=== PATIENT | female | born 1945 | race Caucasian/White ===

== ENCOUNTER 2020-01-08 19:40 | Observation (INO) | payer MEDICARE, SELFPAY ==
[2020-01-08] VITALS (7 sets, daily range): BP systolic 133–165; BP diastolic 78–102; PULSE 69–90; RESP 14–18; TEMP 36.3–36.5; O2SAT 97–100; BMI 34.4
--- NOTE | 2020-01-08 19:56 | CTR_ITS ---
PROCEDURE INFORMATION: Exam: CT Head Without Contrast Exam date and time: 01/08/2020 8:22 PM Age: 74 years old Clinical indication: Visual disturbance and weakness, extremity; Right; Patient HX: Double vision L eye pain and R sided weakness x 1 week TECHNIQUE: Imaging protocol: Computed tomography of the head without contrast. Total DLP: 802.28 mGy-cm Radiation optimization: All CT scans at this facility use at least one of these dose optimization techniques: automated exposure control; mA and/or kV adjustment per patient size (includes targeted exams where dose is matched to clinical indication); or iterative reconstruction. COMPARISON: CT head wo con* [id number] 05/16/2018 6:37 AM FINDINGS: Brain: Moderate white matter disease and volume loss are identified. There is no acute infarct or edema. No hemorrhage. Ventricles: Normal. No ventriculomegaly. Bones/joints: Unremarkable. No acute fracture. Sinuses: Visualized sinuses are unremarkable. No fluid levels. Mastoid air cells: Visualized mastoid air cells are well aerated. Soft tissues: Unremarkable. CT/CT head wo con* [id number] IMPRESSION: There are no acute concerning abnormalities. Radiation Dose CTDIVOL = (mGy): DLP = 802.28 (mGy-cm)
--- NOTE | 2020-01-08 19:56 | XRR_ITS ---
PROCEDURE INFORMATION: Exam: XR Chest, 1 View Exam date and time: 01/08/2020 8:28 PM Age: 74 years old Clinical indication: Other: Weakness TECHNIQUE: Imaging protocol: XR of the chest Views: 1 view. COMPARISON: CR Chest 2 views* [id number] 06/02/2018 9:04 AM FINDINGS: Lungs: Unremarkable. No consolidation. Pleural space: Unremarkable. No pleural effusion. No pneumothorax. Heart/Mediastinum: Cardiomegaly is identified. Bones/joints: Unremarkable. XR/XR chest 1V portable [id number] IMPRESSION: No acute findings.
--- NOTE | 2020-01-08 19:57 | ECG_ITS ---
Measurements Intervals [place] Rate: 70 P: 243 MI: 219 QRS: -1 QRSD: 87 T: 153 QT: 423 QTc: 458 SINUS RHYTHM WITH MARKED SINUS ARRHYTHMIA WITH FIRST DEGREE AV BLOCK POSSIBLE ANTERIOR MYOCARDIAL INFARCTION [30 ms Q WAVE IN V3/V4, OR R < 0.2 mV IN V4], OF INDETERMINATE AGE MODERATE T-WAVE ABNORMALITY, CONSIDER LATERAL ISCHEMIA [-0.1+ mV T WAVE IN I/ I/aVL/V5/V6] Compared to ECG 05/16/2018 04:48:00 First degree AV block now present Myocardial infarct finding now present Atrial fibrillation no longer present T-wave abnormality still present Possible ischemia still present Electronically Signed On 01-09-2020 21:10:05 CDT by Miah Kelly M.D. [email or web address]
--- NOTE | 2020-01-08 19:59 | ED_ITS ---
HPI - Weakness General: Chief complaint: Neuro Symptoms/Deficit Stated complaint: eye pain Time Seen by Provider: 01/08/20 19:48 Source: patient Mode of arrival: ambulatory Limitations: no limitations History of Present Illness: HPI Narrative: 74-year-old female who states she is not been able to move her right side for the last 6 days. She states that she did come to ER because she did not think it was open due to the coronavirus. Patient states she started to have some movement of the right arm but still unable to move her right leg. Her daughter is been taking care of her. She states that she is also had some right-sided facial droop. Patient here has no aphasia and is able to speak without any difficulties. Complaint: focal weakness Onset (ago): hour(s) Associated symptoms: Denies chest pain, chills, dysuria, easy bruising, fever(s), headache(s), nausea or vomiting Review of Systems Const: Denies: fever, chills, body aches or change in appetite Eyes: Denies: blurry vision or eye discomfort ENMT: Denies: throat pain or dental pain Card: Denies: chest pain Resp: Denies: shortness of breath GI: Denies: abdominal pain, nausea, vomiting or diarrhea : Denies: painful urination Musc: Denies: neck pain or back pain Skin/Breast: Denies: rash Neuro: Reports: weakness in extremities; Denies: headache Psych: Denies: depression Sarabjit/Lymph: Denies: easy bruising All/Imm: Denies: hives PFS ED PFSH: Medical History (Updated 01/08/20 @ 21:30 by Mi Elder MD) Anemia Atrial fibrillation B12 deficiency CHF (congestive heart failure) COPD (chronic obstructive pulmonary disease) Coronary artery disease Percutaneous intervention circumflex artery Hypertension Hypothyroidism Insulin dependent diabetes mellitus Iron deficiency Microcytic anemia Surgical History (Updated 01/08/20 @ 21:17 by Miah Maravilla MD) H/O Spinal surgery H/O total thyroidectomy Family History (Updated 01/08/20 @ 21:17 by Miah Maravilla MD) Other CAD (coronary artery disease) Diabetes Lung disease Social History (Updated 01/08/20 @ 21:18 by Miah Maravilla MD) Smoking and tobacco status: former smoker Quit status (tobacco): has quit using tobacco Former quit date comment: Quit 2002 Alcohol intake: never Substance/Drug Use: never Household members: family Marital status: Single Physical Exam Const: COMMON NORMALS: no apparent distress, oriented x3 and healthy appearing HENMT: COMMON NORMALS: normocephalic and head/scalp atraumatic HEAD & SCALP: normocephalic and atraumatic Eye: COMMON NORMALS: PERRL and EOMs intact bilaterally PUPIL: Yes PERRL Neck/C-Spine: COMMON NORMALS: full ROM and supple Chest: COMMONS NORMALS: inspection of chest normal and palpation of chest normal Resp: COMMON NORMALS: normal respiratory effort, no retractions, no use of accessory muscles and clear to auscultation bilaterally AUSCULTATION: clear to auscultation bilaterally Cardio: COMMON NORMALS: regular rate, regular rhythm and no murmurs RATE: regular rate RHYTHM: regular rhythm GI: COMMON NORMALS: normal to inspection, nondistended, normoactive bowel sounds, soft to palpation, non-tender and no masses PALPATION: Yes soft Extremity: COMMON NORMALS: normal to inspection and full ROM Neuro: COMMON NORMALS: oriented x3 OTHER: unable to move right lower leg, weakness in right arm. Psych: COMMON NORMALS: mental status grossly normal, thought process normal and cooperative THOUGHT PROCESS: normal thought process Skin: COMMON NORMALS: no rashes or lesions noted and no wounds GENERAL SKIN EXAM: no rashes or lesions noted Course 2 Vital Signs: Vital signs: Vital Signs Temperature 97.4 F L 01/08/20 19:50 Pulse Rate 69 01/08/20 21:00 Respiratory Rate 14 01/08/20 20:59 Blood Pressure 133/82 01/08/20 20:59 Pulse Oximetry 97 01/08/20 20:59 MDM - Weakness Medical Records: Medical records narrative: Patient presents here with right- sided weakness. Patient is unable to move her leg and has weakness in the right arm as well. Patient CT here showed no acute stroke. Patient symptoms have been going on for days and she is not a TPA or embolic candidate. Spoke to hospitalist and will admit here. Patient had eye pain earlier in the day but has no eye pain currently and eye exam is benign. Lab Data: Labs: Lab Results 01/08/20 01/08/20 01/08/20 Range/Units 20:14 20:14 20:14 WBC 9.4 (4.0-10.0) 10^3/ uL RBC 4.95 (4.1-5.3) 10^6/u L Hgb 13.4 (11.5-15.3) g/dL Hct 42.8 (37.0-47.0) % MCV 86.5 (81-99) fL MCH 27.1 L (28.0-34.0) pg MCHC 31.3 (30.0-36.0) g/dL RDW 14.9 (12.1-15.1) % Plt Count 252 (130-400) 10^3/c mm MPV 9.1 (7.4-10.4) fL Neut % (Auto) 62.7 % Lymph % (Auto) 27.3 % [place] % (Auto) 6.5 % Eos % (Auto) 2.4 % Baso % (Auto) 0.9 % Neut # (Auto) 5.9 (1.8-7.7) 10^3/u L Lymph # (Auto) 2.6 (0.8-4.8) 10^3/u L [place] # (Auto) 0.6 (0.2-0.9) 10^3/u L Eos # (Auto) 0.2 (0.0-0.8) 10^3/u L Baso # (Auto) 0.1 (0.0-0.1) 10^3/u L Nucleated RBC % (a uto) 0 % Nucleated RBCs # 0.0 /100WBC PT 16.30 H (10.5-13.3) SECO NDS INR 1.27 H (0.8-1.2) Sodium 134 L (136-145) mmol/L Potassium 4.3 (3.5-5.1) mmol/L Chloride 98 (98-107) mmol/L Carbon Dioxide 25 (22-29) mmol/L Anion Gap 15.3 (5-19) BUN 12 (8-23) mg/dL Creatinine 1.0 H (0.5-0.9) mg/dL Glucose 258 H (65-115) mg/dL Calculated Osmolal ity 283 L (285-295) mOsm/k g Calcium 9.4 (8.5-10.5) mg/dL Total Bilirubin 0.3 (0.15-1.2) mg/dL AST 12 (0-32) U/L ALT 11 (0-33) U/L Alkaline Phosphata se 66 (35-105) IU/L Total Protein 8.1 (6.6-8.7) g/dL Albumin 4.2 (3.5-5.2) g/dL Globulin 3.9 (1.3-4.6) g/dL Imaging Data^: CXR: Attestation: I personally reviewed and interpreted this imaging study as follows: My impression: no acute abnormalities CT Head: Radiologist's impression: [facility] [address] [address] [place] [address] CT Scan Report Signed Patient: Kiesha Eason Unit #: [id number] : 1945 Age/Sex: 74 / F ADM Date: 01/08/20 Loc: ER Room/Bed: Attending Dr: Ordering Provider/Ordering MD: Mi Elder MD Date of Service: 01/08/20 Procedure(s): CT head wo con* [id number] Accession Number(s): [id number] Report Number: [id number] PROCEDURE INFORMATION: Exam: CT Head Without Contrast Exam date and time: 01/08/2020 8:22 PM Age: 74 years old Clinical indication: Visual disturbance and weakness, extremity; Right; Patient HX: Double vision L eye pain and R sided weakness x 1 week TECHNIQUE: Imaging protocol: Computed tomography of the head without contrast. Total DLP: 802.28 mGy-cm Radiation optimization: All CT scans at this facility use at least one of these dose optimization techniques: automated exposure control; mA and/or kV adjustment per patient size (includes targeted exams where dose is matched to clinical indication); or iterative reconstruction. COMPARISON: CT head wo con* [id number] 05/16/2018 6:37 AM FINDINGS: Brain: Moderate white matter disease and volume loss are identified. There is no acute infarct or edema. No hemorrhage. Ventricles: Normal. No ventriculomegaly. Bones/joints: Unremarkable. No acute fracture. Sinuses: Visualized sinuses are unremarkable. No fluid levels. Mastoid air cells: Visualized mastoid air cells are well aerated. Soft tissues: Unremarkable. CT/CT head wo con* [id number] IMPRESSION: There are no acute concerning abnormalities. EKG Data^: EKG 1: Attestation: I personally reviewed and interpreted this EKG as follows: EKG interpretation date: 01/08/20 EKG interpretation time: 20:19 Interpretation: nsr hr [address] or t wave abnormalities qrs 87 qtd 444 Discharge Plan Discharge Patient Disposition: Admitted As Inpatient Clinical Impression: Right hemiparesis Condition: Stable Coding Level of Care Code ED Reading Interventionist for Chg Fwd Exam Comprehensive
--- NOTE | 2020-01-08 20:07 | PC.NURSE ---
patient states that about a week ago she started having sudden loss of movement on the right side of her body. patient states that around the same time she started having left sided eye pain. patient states that her left leg and arm feel like they just hang there .
[2020-01-08 20:32] LABS: Basophils # 0.1 10^3/uL (0.0-0.1); Basophils % 0.9 %; Eosinophils # 0.2 10^3/uL (0.0-0.8); Eosinophils % 2.4 %; Hematocrit 42.8 % (37.0-47.0); Hemoglobin 13.4 g/dL (11.5-15.3); Lymphocytes # 2.6 10^3/uL (0.8-4.8); Lymphocytes % 27.3 %; Mean Corpuscular HGB Conc 31.3 g/dL (30.0-36.0); Mean Corpuscular Hemoglobin 27.1 pg (28.0-34.0); Mean Corpuscular Volume 86.5 fL (81-99); Mean Platelet Volume 9.1 fL (7.4-10.4); Monocytes # 0.6 10^3/uL (0.2-0.9); Monocytes % 6.5 %; Neutrophils # 5.9 10^3/uL (1.8-7.7); Neutrophils % 62.7 %; Nucleated Red Blood Cells % 0 %; Platelet Count 252 10^3/cmm (130-400); Red Blood Count 4.95 10^6/uL (4.1-5.3); Red Cell Distribution Width 14.9 % (12.1-15.1); White Blood Count 9.4 10^3/uL (4.0-10.0)
[2020-01-08 20:53] LABS: INR 1.27 (0.8-1.2)
[2020-01-08 21:00] LABS: Alanine Aminotransferase 11 U/L (0-33); Albumin Level 4.2 g/dL (3.5-5.2); Alkaline Phosphatase 66 IU/L (35-105); Anion Gap 15.3 (5-19); Aspartate Amino Transferase 12 U/L (0-32); Blood Urea Nitrogen 12 mg/dL (8-23); Calcium 9.4 mg/dL (8.5-10.5); Carbon Dioxide 25 mmol/L (22-29); Chloride 98 mmol/L (98-107); Creatinine Clr Calc Pharmacy 59.8992; Globulin 3.9 g/dL (1.3-4.6); Glucose 258 mg/dL (65-115); Osmolality Calculated 283 mOsm/kg (285-295); Potassium 4.3 mmol/L (3.5-5.1); Sodium 134 mmol/L (136-145); Total Bilirubin 0.3 mg/dL (0.15-1.2); Total Protein 8.1 g/dL (6.6-8.7)
--- NOTE | 2020-01-08 21:12 | CTR_ITS ---
PROCEDURE INFORMATION: Exam: CT Angiography Head With Contrast Exam date and time: 01/08/2020 9:27 PM Age: 74 years old Clinical indication: Patient HX: C/O R sided weakness x 1 week; Additional info: CVA TECHNIQUE: Imaging protocol: Computed tomography angiography of the head with intravenous contrast. 3D rendering: MIP and/or 3D reconstructed images were created by the technologist. Total DLP: 2464.04 mGy-cm Radiation optimization: All CT scans at this facility use at least one of these dose optimization techniques: automated exposure control; mA and/or kV adjustment per patient size (includes targeted exams where dose is matched to clinical indication); or iterative reconstruction. Contrast material: VISI 320; Contrast volume: 95 ml; Contrast route: 20G; COMPARISON: CT head wo con* [id number] 01/08/2020 8:29 PM FINDINGS: Right internal carotid artery: There are calcifications present within the cavernous and supraclinoid segments with no significant stenosis or occlusion. No aneurysm. Right anterior cerebral artery: No occlusion or significant stenosis. No aneurysm. Right middle cerebral artery: No occlusion or significant stenosis. No aneurysm. Right posterior cerebral artery: No occlusion or significant stenosis. No aneurysm. Right vertebral artery: No occlusion or significant stenosis. No aneurysm. Left internal carotid artery: Calcific plaques are present within the cavernous and supraclinoid segments with no significant stenosis or occlusion. No aneurysm. Left anterior cerebral artery: No occlusion or significant stenosis. No aneurysm. Left middle cerebral artery: No occlusion or significant stenosis. No aneurysm. Left posterior cerebral artery: No occlusion or significant stenosis. No aneurysm. Left vertebral artery: No occlusion or significant stenosis. No aneurysm. Basilar artery: No occlusion or significant stenosis. No aneurysm. IMPRESSION: No large vessel stenosis or occlusion. PROCEDURE INFORMATION: Exam: CT Angiography Neck With Contrast Exam date and time: 01/08/2020 9:27 PM Age: 74 years old Clinical indication: Patient HX: C/O R sided weakness x 1 week; Additional info: CVA TECHNIQUE: Imaging protocol: Computed tomography angiography of the neck with intravenous contrast. 3D rendering: MIP and/or 3D reconstructed images were created by the technologist. Total DLP: 2464.04 mGy-cm Radiation optimization: All CT scans at this facility use at least one of these dose optimization techniques: automated exposure control; mA and/or kV adjustment per patient size (includes targeted exams where dose is matched to clinical indication); or iterative reconstruction. Contrast material: VISI 320; Contrast volume: 95 ml; Contrast route: 20G; COMPARISON: CT head wo con* [id number] 01/08/2020 8:29 PM FINDINGS: VASCULATURE: Right common carotid artery: Calcific plaques are present within the carotid bulb. This causes approximately 40% luminal diameter narrowing. No dissection or occlusion. Right internal carotid artery: No stenosis of the extracranial segment. No dissection or occlusion. Right external carotid artery: No occlusion or stenosis of the origin. Right vertebral artery: No stenosis. No dissection or occlusion. Left common carotid artery: Calcific plaques are present within the carotid bulb. There is approximately 60% luminal diameter narrowing seen within the carotid bulb. Left internal carotid artery: No stenosis of the extracranial segment. No dissection or occlusion. Left external carotid artery: No occlusion or stenosis of the origin. Left vertebral artery: No stenosis. No dissection or occlusion. Other vasculature: . No dissection or occlusion. NECK: Bones/joints: No acute fracture. Soft tissues: Normal. No significant soft tissue swelling. CT/CT angio headneck* [id number] IMPRESSION: 1. There is mild, approximately 40% luminal diameter narrowing secondary to calcific plaque formation within the right carotid bulb. 2. There is moderate, approximately 60% luminal diameter narrowing secondary to calcific plaque formation within the left carotid bulb. REFERENCES: NASCET CRITERIA. The degree of internal carotid artery stenosis is based on NASCET criteria. Normal is no stenosis. Mild is less than 50% stenosis. Moderate is 50-69% stenosis. Severe is 70% to 99% stenosis. Total occlusion is no detectable patent lumen. Radiation Dose CTDIVOL = (mGy): DLP = 2464.04~2464.04 (mGy-cm)
--- NOTE | 2020-01-08 21:14 | PM.HP ---
Providers/Chief Complaint Chief Complaint: eye pain History of Present Illness Kiesha Eason is a 74 year old female who carries diagnosis of atrial fibrillation, chronic anticoagulation on Xarelto, coronary artery disease status post PCI, type 2 diabetes, insulin-dependent, non-oxygen dependent COPD, came in after experiencing right leg weakness. Patient is stating that her symptoms started about 1 week ago around Friday when she started noticing right leg weakness when she woke up, she also noticed weakness in her right arm. She did not come to ER for further evaluation thinking hospitals are closed because of pandemic. She lives with her granddaughter. She did not experience any falls, aspiration or choking on food, she denies urinary or bowel incontinence, fever, nausea, vomiting, palpitations, chest pain, shortness of breath. Patient is stating that she is very compliant with her medications except Lasix which she has not been taking since last 1 week. She has been noticing swelling in her lower extremities bilaterally. Today she went to urgent care because of gradually worsening of weakness of her right side of the body, at the urgent care facial droop was noticed hence she was transferred to ER for further evaluation. Diagnostics in ER revealed normal hemodynamics, normal blood work, CT head negative for intracranial hemorrhage, I requested CTA head and neck Patient is stating that she only stopped Xarelto in September and October for only 2 days before her cataract surgery otherwise she has been compliant with it. She is not a candidate for TPA, EKG shows A. fib without RVR heart rate 70s, systolic blood pressure 140s, Review of Systems Const: Reports: body aches and fatigue; Denies: fever or chills Eyes: Reports: blurry vision, blind spots, photophobia, eye discomfort and dry eyes; Denies: eye redness or yellow eyes ENMT: Denies: throat pain or uvular edema Card: Reports: irregular heart rhythm, edema and swelling of feet/ankles; Denies: chest pain, palpitations, syncope or pre-syncope Resp: Denies: shortness of breath GI: Denies: abdominal pain, nausea or vomiting : Denies: flank pain, difficulty urinating or urinary frequency Musc: Reports: limited range of motion and muscle weakness Skin/Breast: Denies: rash Neuro: Reports: numbness in extremities, weakness in extremities and difficulty walking; Denies: headache, frequent falls, confusion, behavioral changes, slurred speech or seizure-like activity Psych: Denies: anxiety Endo: Denies: excessive urination Sarabjit/Lymph: Denies: easy bruising All/Imm: Denies: hives Medications/Allergies Allergies Allergy/AdvReac Type Severity Reaction Status Date / Time gabapentin Allergy Unknown Verified 01/08/20 18:47 levothyroxine Allergy Unknown Verified 01/08/20 18:47 lisinopril Allergy Unknown Verified 01/08/20 18:47 naproxen Allergy Unknown Verified 01/08/20 18:47 pentazocine Allergy Unknown Verified 01/08/20 18:47 pioglitazone Allergy Unknown Verified 01/08/20 18:47 raloxifene Allergy Unknown Verified 01/08/20 18:47 simvastatin Allergy Unknown Verified 01/08/20 18:47 verapamil Allergy Unknown Verified 01/08/20 18:47 PFSH Acute PFSH: Medical History Anemia Atrial fibrillation B12 deficiency CHF (congestive heart failure) COPD (chronic obstructive pulmonary disease) Coronary artery disease Percutaneous intervention circumflex artery Hypertension Hypothyroidism Insulin dependent diabetes mellitus Iron deficiency Microcytic anemia Surgical History H/O Spinal surgery H/O total thyroidectomy Family History Other CAD (coronary artery disease) Diabetes Lung disease Social History Smoking and tobacco status: former smoker Quit status (tobacco): has quit using tobacco Former quit date comment: Quit 2002 Alcohol intake: never Substance/Drug Use: never Household members: family Marital status: Single Vitals/I&O/Wt Last Vital Signs Temp 97.4 F L 01/08/20 19:50 Pulse 69 01/08/20 21:00 Resp 14 01/08/20 20:59 BP 133/82 01/08/20 20:59 Pulse Ox 97 01/08/20 20:59 Weight last 48 hrs Weight 99.79 kg Physical Exam Narrative: EXAM NARRATIVE: Very pleasant elderly female sitting comfortably in her bed Saturating well on room air Systolic blood pressure 140s, heart rate 76, A. fib without RVR Right arm weakness on flexion, extension, weak handgrip, NIH score 7, reflexes are equivocal Did not detect visual field loss EOMI Patient is awake, alert, able to protect her airways Bilateral pupils sluggish response to light No deviation of tongue Deviation of angle of mouth towards the left with right-sided facial droop Palmer's palsy right-sided S1, S2 are variable, bilateral lower extremity edema 1+ Lungs are clear to auscultation Abdomen soft, nontender, distended, obese obesity, bowel sound present Appropriate mood and affect Data : 01/08/20 20:14 01/08/20 20:14 A&P Assessment and plan (1) Right hemiparesis: Status: Acute (2) Ischemic stroke: Status: Acute (3) Chronic anticoagulation: Status: Acute Additional A&P Information Subacute ischemic stroke while on anticoagulation Right hemiparesis with ipsilateral Palmer's palsy I would hold anticoagulation along Plavix, would follow-up with CTA head and neck to know more about the infarcted area, considering use of Plavix and Xarelto should be considered high risk for intracranial hemorrhage after ischemic stroke NIH 7, not a candidate of TPA because of use of Xarelto A. fib without RVR, she has been compliant with her anticoagulation, Hold anticoagulation for at least 2 to 3 weeks Discontinue Plavix, Allow permissive hypertension, strict glucose control, Physical therapy in the morning, she passed bedside evaluation, I will let her have consistent carbohydrate diet tonight Patient does not want to go to any prison, she would rather rely on her daughter and granddaughter and home health services This will be considered failure of Xarelto for prevention of stroke, kindly reevaluate for alternative options A. fib without RVR I would continue AV shreya blocking agent but hold anticoagulation for at least 2 to 3 weeks because of recent embolic event No palpitations or chest pain, discontinue Plavix, she was taking Plavix because of previous history of PCI in 2017 to her circumflex artery Type 2 diabetes, insulin-dependent, Sliding scale and long-acting insulin Ischemic cardiomyopathy acute exacerbation of CHF exacerbation: EF 45% I would continue her home dose of Lasix which she has not been taking for last 1 week, Hypothyroidism status post thyroidectomy Continue levothyroxine Previous history of microcytic anemia with B12 deficiency: We will check B12 level and continue B12 supplementation at this time which could also be a cause of hypercoagulability COPD: Without active exacerbation Non-oxygen dependent Patient is full code DVT prophylaxis: Patient took her Xarelto today, she is covered for 24 hours, for tomorrow I would start Lovenox DVT prophylaxis dose Attestations Medical Necessity Statement*: Anticipating discharge less than 48 hours after evaluation of by physical therapy in the morning, she might benefit from home health services, currently awaiting CTA head and neck Time Spent in Patient Care: 50 Coding Level of Care Code Acute [employer]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
--- NOTE | 2020-01-08 21:44 | PC.NURSE ---
hospitalist in room with patient
[2020-01-08] MEDS: iodixanol 320 mg/mL 100mL Btl IV (21:55)
--- NOTE | 2020-01-08 21:55 | PC.NURSE ---
PATIENT TO CT
[2020-01-08 23:30] LABS: Vitamin B12 614 pg/mL (232-1245)
[2020-01-09 01:01] VITALS: BP 135/83; PULSE 73; RESP 18; TEMP 36.4; O2SAT 96
[2020-01-09] MEDS: ALPRAZolam 0.25 mg Tablet 0.125 MG PO (02:41)
[2020-01-09 03:53] VITALS: BP 109/64; PULSE 86; RESP 18; TEMP 36.8; O2SAT 98
[2020-01-09 04:53] LABS: Specific Gravity, Urine 1.005 (1.005-1.030); Urine Appearance Clear (CLEAR); Urine Color Yellow (Yellow); pH Urine 5 (5-7)
[2020-01-09 04:54] LABS: Add Urine Microscopic? YES; Bacteria Urine 1+; Bilirubin Urine Neg (NEGATIVE); Blood Urine Neg (Negative); Glucose Urine UA 2+ (Normal); Ketones Urine Negative (Negative); Leukocyte Esterase Urine 1+ (Negative); Nitrate Urine Negative (Negative); Protein Urine Trace (Negative); RBC Urine 0-4 /hpf (0-2); Squamous Epithelial Cell Urine 0-4 (0-5); Urobilinogen Urine Norm (Negative)
[2020-01-09 06:34] LABS: Glucose Point of Care 237 mg/dL (70-110)
[2020-01-09 06:35] LABS: Anion Gap 16.5 (5-19); Blood Urea Nitrogen 12 mg/dL (8-23); Calcium 9.8 mg/dL (8.5-10.5); Carbon Dioxide 27 mmol/L (22-29); Chloride 97 mmol/L (98-107); Glucose 246 mg/dL (65-115); Osmolality Calculated 286 mOsm/kg (285-295); Potassium 4.5 mmol/L (3.5-5.1); Sodium 136 mmol/L (136-145)
[2020-01-09 07:00] VITALS: BP 128/88; PULSE 98; RESP 18; TEMP 36.8; O2SAT 96
[2020-01-09] MEDS: levothyroxine 50 mcg Tablet PO (08:09)
[2020-01-09] MEDS: cyanocobalamin 1,000 mcg Tablet 1000 MCG PO (08:10)
[2020-01-09] MEDS: clopidogrel 75 mg Tablet PO (08:11)
[2020-01-09] MEDS: sennosides 8.6 mg Tablet PO (08:11)
[2020-01-09] MEDS: levothyroxine 100 mcg Tablet PO (08:11)
[2020-01-09] MEDS: pantoprazole DR 40 mg Tablet PO (08:12)
[2020-01-09] MEDS: metoprolol tartrate 50 mg Tablet 100 MG PO (08:12)
[2020-01-09] MEDS: artificial tears Op Oint 3.5 gm 1 APPLIC EYE-BOTH (08:13)
[2020-01-09] MEDS: insulin glargine 100 units/1 mL 30 UNIT SUBCUT (08:14)
[2020-01-09 11:00] VITALS: BP 93/67; PULSE 97; RESP 18; TEMP 36.6; O2SAT 96
[2020-01-09 11:26] LABS: Glucose Point of Care 266 mg/dL (70-110)
[2020-01-09 14:24] VITALS: BP 93/67; PULSE 97; RESP 18; TEMP 36.6; O2SAT 96
--- NOTE | 2020-01-09 22:59 | P.DS_ITS ---
Discharge Providers Date of Admission: 01/08/20 21:10 Date of Discharge: January 09, 2020 Attending Provider at Admission: Miah Maravilla MD Attending Provider at Discharge: Janay Conklin MD Diagnoses at Discharge Discharge Diagnosis (1) Right hemiparesis: Status: Acute (2) Ischemic stroke: Status: Acute (3) Chronic anticoagulation: Status: Acute Reason for Visit Reason for Visit: Reason For Visit: eye pain Hospital Course Discharge Summary: Kiesha Eason is a 74 year old female who carries diagnosis of atrial fibrillation, chronic anticoagulation on Xarelto, coronary artery disease status post PCI, type 2 diabetes, insulin-dependent, non-oxygen dependent COPD, came in after experiencing right sided weakness that started 6 days ago. NIHSS was 7. CT head was negative. CTA head and neck showed 40-60% ICA stenosis B/L. she was not a candidate for tPA. PT eval was done and recommended SNF rehab, however patient declined. Patient also declined outpatient and home PT. Her daughter requested a home exercise program and this was provided. CAse was discussed with [facility] neurology, it was recommended to switch a/c from xarelto to eliquis due to possibly lower risk of hemorrhagic transformation for the same. Anticoagulation can be resumed at 7 days (2 days from now). Recommeded strict blood pressure control as well. Patient was discharged with these recommendations. Her R side weakness was subjectively improving upon discharge. She will have family helping her at home. Physical Exam Narrative: EXAM NARRATIVE: GEN: Awake, alert and oriented, no acute distress CVS: S1S2 N RS: CTA B/L Abd: Soft, nt/nd , bs+ ACID CHANGER: R sided weakness Discharge Data Data Completed and Pending: Completed Studies During Hospitalization Category Date Time Status CT angio headneck * [id number]/[id number] Urge nt Cat Scan 01/08/20 21:[address] head wo con* 7 0450 Urgent Cat Scan 01/08/20 19:56 Completed XR chest 1V amena ble [id number] Urgent Exams 01/08/20 19:56 Completed Labs from last 24 hours 01/09/20 01/09/20 01/09/20 11:23 06:19 06:01 Sodium 136 Potassium 4.5 Chloride 97 L Carbon Dioxide 27 Anion Gap 16.5 BUN 12 Creatinine 0.9 Glucose 246 H POC Glucose 266 237 Calculated Osmolal ity 286 Calcium 9.8 Vitamin B12 Urine Color Urine Appearance Urine pH Ur Specific Gravit y Urine Protein Urine Glucose (UA) Urine Ketones Urine Blood Urine Nitrate Urine Bilirubin Urine Urobilinogen Ur Leukocyte Teresa ase Urine RBC Urine WBC Ur Squamous Epith Cells Urine Bacteria 01/09/20 01/08/20 03:45 20:14 Sodium Potassium Chloride Carbon Dioxide Anion Gap BUN Creatinine Glucose POC Glucose Calculated Osmolal ity Calcium Vitamin B12 614 Urine Color Yellow Urine Appearance Clear Urine pH 5 Ur Specific Gravit y 1.005 Urine Protein Trace Urine Glucose (UA) 2+ Urine Ketones Negative Urine Blood Neg Urine Nitrate Negative Urine Bilirubin Neg Urine Urobilinogen Norm Ur Leukocyte Teresa ase 1+ H Urine RBC 0-4 H Urine WBC 10-15 H Ur Squamous Epith Cells 0-4 H Urine Bacteria 1+ H Vitals: Last Vital Signs Temp 98 F 01/09/20 14:24 Pulse 97 01/09/20 14:24 Resp 18 01/09/20 14:24 BP 93/67 01/09/20 14:24 Pulse Ox 96 01/09/20 14:24 Discharge Plan Discharge Patient Disposition: Home, Self-Care Condition: Stable Prescriptions: New Artificial Tears (nestor/min) 83-15 % Ointment 1 applic eye-both DAILY Qty: 0 RF: 0 Eliquis 5 mg tablet 5 mg PO BID 30 Days Qty: 60 RF: 0 Continued Lantus U-100 Insulin 100 unit/mL solution 40 unit SUBCUT DAILY RF: 0 meclizine 25 mg tablet,chewable 25 mg PO BID RF: 0 clopidogrel 75 mg tablet 75 mg PO DAILY RF: 0 sennosides 8.6 mg tablet 8.6 mg PO BID RF: 0 tamsulosin [Flomax] 0.4 mg capsule 0.4 mg PO DAILY RF: 0 esomeprazole magnesium [Nexium 24HR] 20 mg capsule,delayed release(DR/EC) 20 mg PO DAILY RF: 0 magnesium oxide 400 mg magnesium tablet 400 mg PO DAILY RF: 0 colesevelam [WelChol] 625 mg tablet 3,750 mg PO DAILY RF: 0 furosemide [Lasix] 40 mg tablet 40 mg PO QAM RF: 0 potassium chloride 20 mEq tablet,ER particles/crystals 20 meq PO DAILY RF: 0 levothyroxine [Synthroid] 50 mcg tablet 50 mcg PO DAILY RF: 0 levothyroxine [Synthroid] 100 mcg tablet 100 mcg PO DAILY RF: 0 alprazolam [Xanax] 0.25 mg tablet 0.125 mg PO DAILY RF: 0 metformin 500 mg tablet 500 mg PO DAILY RF: 0 metoprolol tartrate 100 mg tablet 100 mg PO BID Qty: 180 RF: 3 Held losartan 50 mg tablet 50 mg PO BID RF: 0 Hold Instructions: Resume on 01/10/20. check BP twice a day. resume if top number is >140 Discontinued Xarelto 20 mg tablet 20 mg PO DAILY RF: 0 Discharge Orders: Discharge Order (Routine); Ordered 01/09/20 Ordered By: Janay Conklin Referrals: Janay Conklin MD [Hospitalist] - (Faxed paper work to [facility] and requested them to call you Friday and Make an appontment for you.) Miah Kelly MD [Physician] - 2 weeks (Faxed a face sheet to [facility] so they could call you Friday and make an appointment with Dr. Kelly in 2 weeks.) Karishma Johnson ARNP [Family Provider] - (Call Friday and make an hospital follow-up appointment with Karishma in 4-7 days.) Discharge Diet: Diabetic Discharge Activity: As per PT/OT instructions Patient Instructions: Apixaban (By mouth), Atrial Fibrillation (GEN), Ischemic Stroke (GEN), Self Care Measures After a Stroke (GEN), Stroke Stoplight Discharge Date/Time: 01/09/20 17:10 Discharge Attestations Time Spent in Discharge Care*: greater than 30 min Specific Discharge Activities: Specific discharge activities: educating and/or supporting family/caregiver and discussing with case liner/social workers/dc planners Quality Metrics Clinical Quality Measures During this hospital stay, did patient experience: Stroke Contraindication to Antithrombotic: Antithrombotic prescribed Contraindication to Anticoagulation: Anticoagulation prescribed Contraindication to Statin: Drug allergy Coding Level of Care Code Acute 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
== END 2020-01-09 17:10 | disposition home or self-care (01) ==
LOC: ER 21:30 → MEDSURG 01-09 06:33
PROVIDERS: Admitting Provider Internal Medicine; Emergency Provider Emergency Medicine; Family Provider Nurse Practitioner Family; Visit Provider Student in an Organized Health Care Education/Training Program
DX: G81.91 Hemiplegia, unspecified affecting right dominant side (principal); I63.9 Cerebral infarction, unspecified; Z79.01 Long term (current) use of anticoagulants; I48.91 Unspecified atrial fibrillation; J44.9 Chronic obstructive pulmonary disease, unspecified; I11.0 Hypertensive heart disease with heart failure; I50.9 Heart failure, unspecified; I25.10 Atherosclerotic heart disease of native coronary artery without angina pectoris; Z87.891 Personal history of nicotine dependence
CPT/HCPCS: 12345; 36415; 36416; 70450; 70496; 70498; 71045; 80048; 80053; 81001; 82607; 82962; 85025; 85610; 93005; 96372; 97110; 97112; 97163; 99283; 99285; G0378; J1815; Q9967

== ENCOUNTER 2020-01-21 13:40 | Emergency (ER) | payer MEDICARE, SELFPAY ==
[2020-01-21 13:53] VITALS: BP 179/100; PULSE 81; RESP 16; TEMP 36.6; O2SAT 97; BMI 31.3
--- NOTE | 2020-01-21 13:56 | ED_ITS ---
HPI - Neuro Symptoms/Deficit General: Chief Complaint: Dizziness Stated Complaint: double vision, hand tingling Time Seen by Provider: 01/21/20 13:54 History of Present Illness: HPI Narrative: Pt had a stroke about a week ago and had right sided weakness. Was sent home and had decided not to do rehab. She was switched from xarelto to eliquis and she states she has had a bad headache since. She felt like she was getting better and over the past week she has felt worse again. She talked to Dr Kelly and he told her to come get a ct head joey she has worse dizziness, double vision and numb hands. Onset (ago): week(s) (about 1 week) Location: right arm and right leg History of same: Yes Severity: similar to previous episodes Quality: weak, numb, tingling and constant Relieving factors: none Exacerbating factors: time Context: sudden onset On Anticoagulants: Yes Associated symptoms: Reports headache(s) and vertigo; Deny chest pain, nausea or vomiting Treatments Prior to Arrival: none Review of Systems General: Reports: 10 or more systems reviewed and unremarkable except in HPI and below Const: Denies: fever, chills or fatigue ENMT: Denies: throat pain Card: Denies: chest pain or swelling of feet/ankles Resp: Denies: shortness of breath or productive cough GI: Denies: abdominal pain, nausea, vomiting, diarrhea, constipation or blood in stool : Denies: difficulty urinating Musc: Denies: back pain or extremity swelling Skin/Breast: Denies: rash Neuro: Reports: headache, weakness in extremities, changes in sensation, difficulty walking and vertigo PFS ED PFSH: Medical History Anemia Atrial fibrillation B12 deficiency CHF (congestive heart failure) COPD (chronic obstructive pulmonary disease) Coronary artery disease Percutaneous intervention circumflex artery Hypertension Hypothyroidism Insulin dependent diabetes mellitus Iron deficiency Microcytic anemia Surgical History H/O Spinal surgery H/O total thyroidectomy Family History Other CAD (coronary artery disease) Diabetes Lung disease Social History (Reviewed 01/21/20 @ 14:12 by ELAINE Rios Smoking and tobacco status: former smoker Quit status (tobacco): has quit using tobacco Former quit date comment: Quit 2002 Alcohol intake: never Household members: family Marital status: Single Physical Exam Const: COMMON NORMALS: no apparent distress and oriented x3 GENERAL APPEARANCE: cooperative; not in distress HENMT: COMMON NORMALS: normocephalic HEAD & SCALP: normal to inspection and normocephalic MOUTH: oral and palatal mucosa normal and lip normal THROAT: posterior oropharynx normal and tonsils normal Neck/C-Spine: COMMON NORMALS: full ROM, no lymphadenopathy, supple and no meningeal signs GENERAL: Yes normal visual inspection and Yes trachea midline Chest: COMMONS NORMALS: inspection of chest normal Resp: COMMON NORMALS: normal respiratory effort and clear to auscultation bilaterally EFFORT & INSPECTION: Yes able to speak in complete sentences and No respiratory distress AUSCULTATION: clear to auscultation bilaterally, no rales, no rhonchi and no wheezes Cardio: COMMON NORMALS: regular rate, regular rhythm, S1 normal heart sound, S2 normal heart sound and no murmurs RATE: regular rate RHYTHM: regular rhythm HEART SOUNDS: S1 normal and S2 normal PERIPHERAL PULSES: radial pulses present and dorsalis pedis pulses present GI: COMMON NORMALS: normal to inspection, nondistended, normoactive bowel sounds, soft to palpation and non-tender INSPECTION: Yes normal to inspection AUSCULTATION: Yes normoactive bowel sounds PALPATION: Yes soft, No tender, No guarding and No rigid RECTAL EXAM: deferred : COMMON NORMALS: Yes no CVA tenderness BLADDER/KIDNEY EXAM: Yes no CVA tenderness Back/Pelvis: COMMON NORMALS: no CVA tenderness Extremity: COMMON NORMALS: normal to inspection, full ROM, normal capillary refill, no calf tenderness and no pedal edema Neuro: COMMON NORMALS: oriented x3 MENINGEAL SIGNS: Yes no meningeal signs CRANIAL NERVES: Yes CN VII (facial) Laterality: right CN VII findings: facial droop, flattened naso-labial fold and unable to puff cheeks COORDINATION/BALANCE: [id number] test normal (cant perform on right. same as when had stroke) and No tandem gait normal SPEECH: speech normal GAIT: Yes unable to assess gait MOTOR EXAM: No strength 5/5 throughout (cannot move right leg or arm against gravity) COORDINATION: [id number]-ug-[id number] test normal (cant perform on right. same as when had stroke) and tandem gait abnormal Skin: COMMON NORMALS: no rashes or lesions noted GENERAL SKIN EXAM: no rashes or lesions noted Course Vital Signs: Vital signs: Vital Signs Temperature 97.8 F 01/21/20 13:53 Pulse Rate 81 01/21/20 13:53 Respiratory Rate 16 01/21/20 13:53 Blood Pressure 179/100 01/21/20 13:53 Pulse Oximetry 97 01/21/20 13:53 MDM - Neuro Symptoms/Deficit MDM Narrative: Medical decision making narrative: Pt has had dizziness, her first trop is 27, I will get a 2nd, pt now states that she thinks all of her symptoms are the same just that she may havae an ear infection as there is a gurgling in her ear. Ct Head shows nothing acute. 1600: pt has some signs of uti so I will give her macrobid for 5 days. Her first troponin was slightly elevated so I am waiting for her 2nd. wq Lab Data: Attestation: I reviewed the patient's lab results. Labs: Lab Results 01/21/20 01/21/20 01/21/20 Range/Units 14:28 14:28 14:28 WBC 7.2 (4.0-10.0) 10^3/ uL RBC 5.20 (4.1-5.3) 10^6/u L Hgb 13.8 (11.5-15.3) g/dL Hct 43.9 (37.0-47.0) % MCV 84.4 (81-99) fL MCH 26.5 L (28.0-34.0) pg MCHC 31.4 (30.0-36.0) g/dL RDW 14.9 (12.1-15.1) % Plt Count 252 (130-400) 10^3/c mm MPV 9.0 (7.4-10.4) fL Neut % (Auto) 57.0 % Lymph % (Auto) 33.2 % [place] % (Auto) 7.2 % Eos % (Auto) 1.5 % Baso % (Auto) 0.8 % Neut # (Auto) 4.1 (1.8-7.7) 10^3/u L Lymph # (Auto) 2.4 (0.8-4.8) 10^3/u L [place] # (Auto) 0.5 (0.2-0.9) 10^3/u L Eos # (Auto) 0.1 (0.0-0.8) 10^3/u L Baso # (Auto) 0.1 (0.0-0.1) 10^3/u L Nucleated RBC % (a uto) 0 % Nucleated RBCs # 0.0 /100WBC Sodium 137 (136-145) mmol/L Potassium 3.9 (3.5-5.1) mmol/L Chloride 96 L (98-107) mmol/L Carbon Dioxide 29 (22-29) mmol/L Anion Gap 15.9 (5-19) BUN 12 (8-23) mg/dL Creatinine 0.9 (0.5-0.9) mg/dL Glucose 148 H (65-115) mg/dL Calculated Osmolal ity 283 L (285-295) mOsm/k g Calcium 9.6 (8.5-10.5) mg/dL Total Bilirubin 0.4 (0.15-1.2) mg/dL AST 14 (0-32) U/L ALT 9 (0-33) U/L Alkaline Phosphata se 86 (35-105) IU/L Troponin T Baselin e 27 H (0-10) ng/mL Total Protein 7.4 (6.6-8.7) g/dL Albumin 4.0 (3.5-5.2) g/dL Globulin 3.4 (1.3-4.6) g/dL Urine Color (Yellow) Urine Appearance (CLEAR) Urine pH (5-7) Ur Specific Gravit y (1.005-1.030) Urine Protein (Negative) Urine Glucose (UA) (Normal) Urine Ketones (Negative) Urine Blood (Negative) Urine Nitrate (Negative) Urine Bilirubin (NEGATIVE) Urine Urobilinogen (Negative) mg/dL Ur Leukocyte Teresa ase (Negative) Urine RBC (0-2) /hpf Urine WBC (0-5) /hpf Ur Squamous Epith Cells (0-5) Ur Renal Epithelia l Cell /hpf Urine Bacteria (NONE) 01/21/20 Range/Units 15:13 WBC (4.0-10.0) 10^3/ uL RBC (4.1-5.3) 10^6/u L Hgb (11.5-15.3) g/dL Hct (37.0-47.0) % MCV (81-99) fL MCH (28.0-34.0) pg MCHC (30.0-36.0) g/dL RDW (12.1-15.1) % Plt Count (130-400) 10^3/c mm MPV (7.4-10.4) fL Neut % (Auto) % Lymph % (Auto) % [place] % (Auto) % Eos % (Auto) % Baso % (Auto) % Neut # (Auto) (1.8-7.7) 10^3/u L Lymph # (Auto) (0.8-4.8) 10^3/u L [place] # (Auto) (0.2-0.9) 10^3/u L Eos # (Auto) (0.0-0.8) 10^3/u L Baso # (Auto) (0.0-0.1) 10^3/u L Nucleated RBC % (a uto) % Nucleated RBCs # /100WBC Sodium (136-145) mmol/L Potassium (3.5-5.1) mmol/L Chloride (98-107) mmol/L Carbon Dioxide (22-29) mmol/L Anion Gap (5-19) BUN (8-23) mg/dL Creatinine (0.5-0.9) mg/dL Glucose (65-115) mg/dL Calculated Osmolal ity (285-295) mOsm/k g Calcium (8.5-10.5) mg/dL Total Bilirubin (0.15-1.2) mg/dL AST (0-32) U/L ALT (0-33) U/L Alkaline Phosphata se (35-105) IU/L Troponin T Baselin e (0-10) ng/mL Total Protein (6.6-8.7) g/dL Albumin (3.5-5.2) g/dL Globulin (1.3-4.6) g/dL Urine Color Yellow (Yellow) Urine Appearance Hazy A (CLEAR) Urine pH 6.5 (5-7) Ur Specific Gravit y 1.005 (1.005-1.030) Urine Protein Trace (Negative) Urine Glucose (UA) Norm (Normal) Urine Ketones Negative (Negative) Urine Blood Neg (Negative) Urine Nitrate Negative (Negative) Urine Bilirubin Neg (NEGATIVE) Urine Urobilinogen Norm (Negative) mg/dL Ur Leukocyte Teresa ase 2+ H (Negative) Urine RBC None (0-2) /hpf Urine WBC 15-25 H (0-5) /hpf Ur Squamous Epith Cells 0-4 H (0-5) Ur Renal Epithelia l Cell 0-4 /hpf Urine Bacteria 3+ H (NONE) Imaging Data^: CT Head: Radiologist's impression: CT Scan Report Signed Patient: Kiesha Eason #: [id number] : 6Acct#:[id number] Age/Sex: 74 / FADM Date: 01/21/20 Loc: ERRoom/Bed: Attending Dr: Ordering Provider/Ordering MD: Angelia Lagos DO Date of Service: 01/21/20 Procedure(s): CT head wo con* [id number] Accession Number(s): [id number] Report Number: [id number] WS: [id number] CT HEAD NONCONTRAST HISTORY: dizziness TECHNIQUE: Contiguous axial imaging performed through the brain in 2.5 mm imaging. Bone and soft tissue windows. Sagittal and coronal reformats reviewed. All CT scans at [facility] use at least one of these dose optimization techniques: automated exposure control; mA and/or kV adjustment per patient size (includes targeted exams where dose is matched to clinical indication); or iterative reconstruction. DLP: 890.56 mGy.cm COMPARISON: 01/08/2020 No acute intracranial hemorrhage, midline shift or mass effect. Mild atrophy and mild chronic ischemic change. No progression since the prior study. Jennings-white matter differentiation remains intact. Small lacunar infarct RIGHT basal ganglia is stable. Lung loss or prior infarct in the LEFT cerebellum is unchanged. Ventricles: Normal size with no hydrocephalus. No inferior displacement of cerebellar tonsils. Paranasal sinuses: Near complete opacification LEFT maxillary sinus. Similar to prior studies. Mastoid air cells: Well pneumatized. Calvarium and scalp: Skull is intact with no soft tissue edema or swelling. CT/CT head wo con* [id number] IMPRESSION: 1. No acute intracranial hemorrhage or edema. 2. Stable mild atrophy and chronic ischemic disease as described above. Dictated By:Claire Capellan DO EKG Data^: EKG 1: Attestation: I personally reviewed and interpreted this EKG as follows: EKG interpretation time: 16:12 Interpretation: atrial fib, rate 73, moderate st changes Discharge Plan Discharge Prescriptions: No Action Lantus U-100 Insulin 100 unit/mL solution 42 unit SUBCUT BEDTIME RF: 0 meclizine 25 mg tablet,chewable 25 mg PO BID RF: 0 clopidogrel 75 mg tablet 75 mg PO DAILY RF: 0 sennosides 8.6 mg tablet 8.6 mg PO QPM RF: 0 tamsulosin [Flomax] 0.4 mg capsule 0.4 mg PO DAILY RF: 0 losartan 50 mg tablet 50 mg PO BID RF: 0 Hold Instructions: Resume on 01/10/20. check BP twice a day. resume if top number is >140 esomeprazole magnesium [Nexium 24HR] 20 mg capsule,delayed release(DR/EC) 20 mg PO DAILY RF: 0 magnesium oxide 400 mg magnesium tablet 400 mg PO DAILY RF: 0 colesevelam [WelChol] 625 mg tablet 1,875 mg PO BID RF: 0 furosemide [Lasix] 40 mg tablet 40 - 80 mg PO QAM RF: 0 potassium chloride 20 mEq tablet,ER particles/crystals 20 meq PO DAILY RF: 0 levothyroxine [Synthroid] 50 mcg tablet 50 mcg PO DAILY RF: 0 levothyroxine [Synthroid] 100 mcg tablet 200 mcg PO DAILY RF: 0 alprazolam [Xanax] 0.25 mg tablet 0.25 mg PO BID PRN (Reason: Anxiety) RF: 0 metformin 500 mg tablet 500 mg PO DAILY RF: 0 metoprolol tartrate 100 mg tablet 100 mg PO BID Qty: 180 RF: 3 Tylenol Arthritis Pain 650 mg Tablet Extended Release 1,300 mg PO PRN RF: 0 Refresh Liquigel 1 % Drops, Liquid Gel See Rx Instructions .ROUTE .COMPLEX RF: 0 Eliquis 5 mg tablet See Rx Instructions .ROUTE .COMPLEX RF: 0 Coding Level of Care Code ED Foreign Student Adviser for g Fwd Exam Comprehensive
--- NOTE | 2020-01-21 14:04 | CT_ITS ---
WS: [id number] CT HEAD NONCONTRAST HISTORY: dizziness TECHNIQUE: Contiguous axial imaging performed through the brain in 2.5 mm imaging. Bone and soft tiss ue windows. Sagittal and coronal reformats reviewed. All CT scans at [facility] use at ast one of these dose optimization techniques: automated exposure control; mA and/or kV adjustment pe r patient size (includes targeted exams where dose is matched to clinical indication); or iterative r econstruction. DLP: 890.56 mGy.cm COMPARISON: 01/08/2020 No acute intracranial hemorrhage, midline shift or mass effect. Mild atrophy and mild chronic ischemic change. No progression since the prior study. Jennings-white matte r differentiation remains intact. Small lacunar infarct RIGHT basal ganglia is stable. Lung loss or p rior infarct in the LEFT cerebellum is unchanged. Ventricles: Normal size with no hydrocephalus. No inferior displacement of cerebellar tonsils. Paranasal sinuses: Near complete opacification LEFT maxillary sinus. Similar to prior studies. Mastoid air cells: Well pneumatized. Calvarium and scalp: Skull is intact with no soft tissue edema or swelling. CT/CT head wo con* [id number] IMPRESSION: 1. No acute intracranial hemorrhage or edema. 2. Stable mild atrophy and chronic ischemic disease as described above.
--- NOTE | 2020-01-21 14:05 | ECG_ITS ---
Measurements Intervals [place] Rate: 73 P: MO: 0 QRS: 1 QRSD: 106 T: 144 QT: 410 QTc: 454 ATRIAL FIBRILLATION POSSIBLE ANTERIOR MYOCARDIAL INFARCTION , PROBABLY OLD [30 ms Q WAVE IN V3/V4, OR MODERATE T-WAVE ABNORMALITY, CONSIDER LATERAL ISCHEMIA [-0.1+ mV T WAVE IN I/ I/aVL/V5/V6] Compared to ECG 01/08/2020 20:19:49 Sinus rhythm no longer present Sinus arrhythmia no longer present First degree AV block no longer present Myocardial infarct finding still present T-wave abnormality still present Possible ischemia still present Electronically Signed On 01-21-2020 18:25:54 CDT by Miah Kelly M.D. [email or web address]
--- NOTE | 2020-01-21 14:20 | PC.NURSE ---
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
[2020-01-21 14:32] LABS: Basophils # 0.1 10^3/uL (0.0-0.1); Basophils % 0.8 %; Eosinophils # 0.1 10^3/uL (0.0-0.8); Eosinophils % 1.5 %; Hematocrit 43.9 % (37.0-47.0); Hemoglobin 13.8 g/dL (11.5-15.3); Lymphocytes # 2.4 10^3/uL (0.8-4.8); Lymphocytes % 33.2 %; Mean Corpuscular HGB Conc 31.4 g/dL (30.0-36.0); Mean Corpuscular Hemoglobin 26.5 pg (28.0-34.0); Mean Corpuscular Volume 84.4 fL (81-99); Monocytes # 0.5 10^3/uL (0.2-0.9); Monocytes % 7.2 %; Neutrophils # 4.1 10^3/uL (1.8-7.7); Nucleated Red Blood Cells % 0 %; Platelet Count 252 10^3/cmm (130-400); Red Cell Distribution Width 14.9 % (12.1-15.1); White Blood Count 7.2 10^3/uL (4.0-10.0)
[2020-01-21 14:54] LABS: Alanine Aminotransferase 9 U/L (0-33); Alkaline Phosphatase 86 IU/L (35-105); Anion Gap 15.9 (5-19); Aspartate Amino Transferase 14 U/L (0-32); Blood Urea Nitrogen 12 mg/dL (8-23); Calcium 9.6 mg/dL (8.5-10.5); Carbon Dioxide 29 mmol/L (22-29); Chloride 96 mmol/L (98-107); Globulin 3.4 g/dL (1.3-4.6); Glucose 148 mg/dL (65-115); Osmolality Calculated 283 mOsm/kg (285-295); Potassium 3.9 mmol/L (3.5-5.1); Sodium 137 mmol/L (136-145); Total Bilirubin 0.4 mg/dL (0.15-1.2); Total Protein 7.4 g/dL (6.6-8.7)
[2020-01-21 14:56] LABS: Troponin(5th) Baseline 27 ng/mL (0-10)
[2020-01-21 15:45] LABS: Add Urine Microscopic? YES; Bilirubin Urine Neg (NEGATIVE); Blood Urine Neg (Negative); Glucose Urine UA Norm (Normal); Ketones Urine Negative (Negative); Leukocyte Esterase Urine 2+ (Negative); Nitrate Urine Negative (Negative); Protein Urine Trace (Negative); Specific Gravity, Urine 1.005 (1.005-1.030); Urine Appearance Hazy (CLEAR); Urine Color Yellow (Yellow); Urobilinogen Urine Norm (Negative); pH Urine 6.5 (5-7)
[2020-01-21 15:46] LABS: Renal Epithelial Cells Urine 0-4 /hpf; Squamous Epithelial Cell Urine 0-4 (0-5); WBC Urine 15-25 /hpf (0-5)
[2020-01-21 15:47] LABS: Add Urine Culture? Yes; Bacteria Urine 3+
--- NOTE | 2020-01-21 15:51 | PC.NURSE ---
Patient states these symptoms are pre-existing from her stroke 2 weeks ago.
[2020-01-21] MEDS: CLONazepam 0.5 mg Tablet PO (16:32)
[2020-01-21 17:22] LABS: Troponin 5 2HR 27.93 ng/mL (0-10); Troponin 5 2HR Delta 0.93 ABS# (0-10)
[2020-01-21 17:47] VITALS: BP 160/94; PULSE 82; RESP 16; O2SAT 97
--- NOTE | 2020-01-21 20:05 | ECG_ITS ---
Measurements Intervals [place] Rate: 73 P: MI: 0 QRS: -5 QRSD: 92 T: 142 QT: 405 QTc: 449 ATRIAL FLUTTER/TACHYCARDIA POSSIBLE ANTERIOR MYOCARDIAL INFARCTION , PROBABLY OLD [30 ms Q WAVE IN V3/V4, OR R < 0.2 mV IN V4] MODERATE T-WAVE ABNORMALITY, CONSIDER LATERAL ISCHEMIA [-0.1+ mV T WAVE IN I/aVL/V5/V6] Compared to ECG 01/08/2020 20:19:49 Sinus rhythm no longer present Sinus arrhythmia no longer present First degree AV block no longer present Myocardial infarct finding still present T-wave abnormality still present Possible ischemia still present Electronically Signed On 01-21-2020 18:26:56 CDT by Miah Kelly M.D. [email or web address]
== END 2020-01-21 17:45 | disposition home or self-care (01) ==
PROVIDERS: Emergency Provider Emergency Medicine; Family Provider Nurse Practitioner Family
DX: R42 Dizziness and giddiness (principal); N39.0 Urinary tract infection, site not specified; Z79.01 Long term (current) use of anticoagulants; Z82.49 Family history of ischemic heart disease and other diseases of the circulatory system; Z83.3 Family history of diabetes mellitus; Z87.891 Personal history of nicotine dependence
CPT/HCPCS: 12345; 36415; 70450; 80053; 81001; 84484; 85025; 87086; 93005; 99282; 99284